=== PATIENT | female | born 1950 | race Asian ===

== ENCOUNTER 2017-07-07 09:30 | Emergency (ER) | payer MEDICARE, OTHER ==
[2017-07-07 12:00] LABS: BILIRUBIN,URINE NEGATIVE (NEGATIVE); PH,URINE 7.5 PH (5.0-7.5)
[2017-07-07 12:01] LABS: UA CHARGE (STRIP ONLY) YES
--- NOTE | 2017-07-07 12:15 | ED Physician Documentation ---
History of Present Illness - Stated complaint Stated Complaint: BACK PAIN - Chief complaint Chief Complaint: General - History obtained from History obtained from: Patient - History of Present Illness Timing: Other (About 10 days ago started a 4 day course of levofloxacin for a skin condition which has gone away. During the antibiotic therapy she had diffuse muscle aches, which got better and then got worse despite being on the antibiotics. She has the worst of it is in the parathoracic musculature and is worse if she lays down or twists. She also has some pain down into her arms and her Achilles tendons bilaterally without disability though. She tried Tylenol without help. There is no associated chest pain, trouble breathing, or fever.) Review of Systems Constitutional: denies: Fever, Chills Cardiac: denies: Chest pain / pressure, Palpitations Respiratory: denies: Dyspnea, Cough GI: denies: Abdominal Pain, Nausea, Diarrhea PD PAST MEDICAL HISTORY - Past Medical History Past Medical History: Yes Cardiovascular: None Respiratory: None Neuro: None Endocrine/Autoimmune: None GI: None : None HEENT: None Psych: None Musculoskeletal: Osteoporosis Derm: None - Past Surgical History Past Surgical History: No HEENT: Tonsil/Adenoidectomy - Present Medications Home Medications: Ambulatory Orders Medication Instructions Recorded Confirmed Multivitamin [Multi-Vitamin Daily] 1 tab PO DAILY 07/31/15 07/07/17 Cartilage/Collagen/Hyalur AC/C [Hm 1 drops PO DAILY 11/25/16 07/07/17 [facility] Ultra Tablet] Methylsulfonylmethane [MSM] 1,000 mg PO TID 11/25/16 07/07/17 Cyclobenzaprine [Flexeril] 10 mg PO TID PRN #20 tablet 07/07/17 Levofloxacin [Levaquin] 250 mg PO DAILY 07/07/17 07/07/17 - Allergies Allergies/Adverse Reactions: Allergies Allergy/AdvReac Type Severity Reaction Status Date / Time gluten Allergy Headache Verified 07/07/17 09:37 - Social History Does the pt smoke?: No Smoking Status: Never smoker Does the pt drink ETOH?: No Does the pt have substance abuse?: No - Immunizations Immunizations are current?: Yes PD ED PE NORMAL - Vitals Vital signs reviewed: Yes - General General: Alert and oriented X 3, No acute distress - HEENT HEENT: PERRL, EOMI - Neck Neck: Supple, no meningeal sign, No bony TTP - Cardiac Cardiac: RRR, No murmur - Respiratory Respiratory: No respiratory distress, Clear bilaterally - Abdomen Abdomen: Non tender - Back Back: No spinal TTP, Other (Mild tenderness of the rhomboid and parathoracic musculature, Achilles tendons are intact.) - Derm Derm: Normal color, Warm and dry - Neuro Neuro: Alert and oriented X 3, Normal speech - Psych Psych: Normal mood, Normal affect Results - Vitals Vitals: Vital Signs - 24 hr 07/07/17 07/07/17 09:32 12:36 Temperature 36.4 C L Heart Rate 83 75 Respiratory 18 18 Rate Blood Pressure 121/82 H 128/88 H O2 Saturation 99 99 Oxygen O2 Source Room air - Labs Labs: Laboratory Tests 07/07/17 11:37 Urine Color YELLOW Urine Clarity CLEAR Urine pH 7.5 Ur Specific [place] 1.010 Urine Protein NEGATIVE Urine Glucose (UA) NEGATIVE Urine Ketones NEGATIVE Urine Occult Blood NEGATIVE Urine Nitrite NEGATIVE Urine Bilirubin NEGATIVE Urine Urobilinogen 0.2 (NORMAL) Ur Leukocyte Esterase NEGATIVE Ur Microscopic Review NOT INDICATED PD MEDICAL DECISION MAKING - ED course ED course: She seems to have some myalgias and tendinopathy's without evidence of tendon rupture related to levofloxacin use which she has already stopped. Conservative care and relative rest were advised. She was reassured that this would resolve without specific intervention. Departure - Departure Disposition: 01 Home, Self Care Clinical Impression: Myalgia Condition: Good Record reviewed to determine appropriate education?: Yes Instructions: ED Neck Back Pain General Prescriptions: Cyclobenzaprine [Flexeril] 10 mg PO TID PRN #20 tablet PRN Reason: Pain Comments: Call your doctor to arrange a follow-up appointment, make the next available appointment. In the interim, return anytime if worse or if new symptoms develop. Your blood pressure was elevated today on check into the emergency department. This does not mean that you have hypertension, it is a common phenomenon to come to the emergency department and have elevated blood pressure. I recommend that she see her primary care physician within the week to have it rechecked when you are feeling better. Discharge Date/Time: 07/07/17 12:36
[2017-07-07 12:37] VITALS: BP 128/88
== END 2017-07-07 12:36 | disposition home or self-care (01) ==
LOC: ED 09:30
DX: M79.1 Myalgia (principal); R03.0 Elevated blood-pressure reading, without diagnosis of hypertension; M81.0 Age-related osteoporosis without current pathological fracture
CPT/HCPCS: 36415; 80053; 81001; 81003; 84439; 84443; 99282; 99283

== ENCOUNTER 2017-07-07 12:46 | Outpatient (CLI) | payer MEDICARE, OTHER ==
[2017-07-07 13:48] LABS: ALBUMIN/GLOBULIN RATIO 1.4 (1.0-2.2); BILIRUBIN,TOTAL 0.6 mg/dL (0.2-1.0); CALCIUM 9.2 mg/dL (8.5-10.3); CREATININE 0.5 mg/dL (0.4-1.0); POTASSIUM 3.7 mmol/L (3.5-5.0); TOTAL PROTEIN 7.3 g/dL (6.7-8.2)
[2017-07-07 14:45] LABS: THYROID STIMULATING HORMONE 1.26 uIU/mL (0.34-5.60)
== END 2017-07-07 12:47 | disposition home or self-care (01) ==
LOC: LAB 12:46
PROVIDERS: ATTEND Dermatology
DX: L29.9 Pruritus, unspecified (principal)
CPT/HCPCS: 36415; 80053; 84439; 84443

== ENCOUNTER 2017-07-09 09:17 | Outpatient (CLI) | payer MEDICARE, OTHER ==
[2017-07-09 17:32] LABS: BASOPHILS % (AUTO) 0.4 %; EOSINOPHILS % (AUTO) 0.1 %; HCT - HEMATOCRIT 41.6 % (37.0-47.0); HGB - HEMOGLOBIN 13.7 g/dL (12.0-16.0); LYMPHOCYTES # (AUTO) 1.3 10^3/uL (1.5-3.5); LYMPHOCYTES % (AUTO) 39.4 %; MEAN CORPUSCULAR HEMOGLOBIN 31.2 pg (27.0-31.0); MEAN CORPUSCULAR HGB CONC 33.1 g/dL (32.0-36.0); MEAN CORPUSCULAR VOLUME 94.2 fL (81.0-99.0); MEAN PLATELET VOLUME 9.9 fL (7.9-10.8); MONOCYTES # (AUTO) 0.3 10^3/uL (0.0-1.0); NEUTROPHILS # (AUTO) 1.6 10^3/uL (1.5-6.6); NEUTROPHILS % (AUTO) 50.1 %; RED BLOOD COUNT 4.41 10^6/uL (4.20-5.40); RED CELL DISTRIBUTION WIDTH 13.2 % (12.0-15.0); UNCORRECTED WHITE BLOOD COUNT 3.3 x10^3/uL; WHITE BLOOD COUNT 3.3 x10^3/uL (4.8-10.8)
[2017-07-09 17:54] LABS: ALBUMIN/GLOBULIN RATIO 1.3 (1.0-2.2); BILIRUBIN,TOTAL 0.7 mg/dL (0.2-1.0); BUN - BLOOD UREA NITROGEN 14 mg/dL (6-20); CALCIUM 9.1 mg/dL (8.5-10.3); CARBON DIOXIDE - CO2 30 mmol/L (21-32); CHLORIDE 104 mmol/L (101-111); CHOL/HDL RATIO 3.3 (<4.4); CHOLESTEROL 206 mg/dL; CREATININE 0.6 mg/dL (0.4-1.0); GFR - MDRD 99 (>89); GLUCOSE 89 mg/dL (70-100); HDL CHOLESTEROL 62 mg/dL; LDL/HDL RATIO 2.1 (<4.4); MAGNESIUM 2.2 mg/dL (1.7-2.8); POTASSIUM 3.9 mmol/L (3.5-5.0); SODIUM 140 mmol/L (135-145); TRIGLYCERIDES 68 mg/dL; VLDL CHOLESTEROL 14 mg/dL
== END 2017-07-09 09:18 | disposition home or self-care (01) ==
LOC: LAB.F 09:17
PROVIDERS: ATTEND Internal Medicine
DX: K90.0 Celiac disease (principal); K58.9 Irritable bowel syndrome, unspecified; K52.9 Noninfective gastroenteritis and colitis, unspecified; E78.3 Hyperchylomicronemia; M81.0 Age-related osteoporosis without current pathological fracture; E55.9 Vitamin D deficiency, unspecified; D72.819 Decreased white blood cell count, unspecified; M54.9 Dorsalgia, unspecified; K62.5 Hemorrhage of anus and rectum; Z79.899 Other long term (current) drug therapy
CPT/HCPCS: 36415; 80053; 80061; 82306; 83735; 84443; 85025

== ENCOUNTER 2017-07-31 08:00 | Outpatient (CLI) | payer MEDICARE, OTHER | END 2017-07-31 23:59 | disposition home or self-care (01) | LOC: LAB.R 08:00 | PROVIDERS: ATTEND Surgery | DX: K62.5 Hemorrhage of anus and rectum (principal) | CPT/HCPCS: 82270 ==

== ENCOUNTER 2017-10-08 13:06 | Emergency (ER) | payer MEDICARE, OTHER ==
[2017-10-08] MEDS ORDERED: ONDANSETRON 4 MG/2 ML VIAL IVP STA (13:23)
[2017-10-08] MEDS ORDERED: SODIUM CHLORIDE 0.9% 1,000 ML IV ONE (13:23)
[2017-10-08] MEDS ORDERED: KETOROLAC 60 MG/2 ML VIAL IVP STA (13:23)
--- NOTE | 2017-10-08 13:25 | ED Physician Documentation ---
PD HPI HEENT - Stated complaint Stated Complaint: VOMITING/WEAKNESS - Chief complaint Chief Complaint: Resp - History obtained from History obtained from: Patient, Family - History of Present Illness Timing - onset: Other (She has had 4 days of gradual onset frontal headache associated with runny nose, nonproductive cough, fever to 101. No neck stiffness though. Pain does radiate to the ears. She has no photophobia or pain with extraocular movements. Multiple sick contacts in the family. She also has body aches.) Review of Systems Ten Systems: 10 systems reviewed and negative Constitutional: reports: Fever, Chills, Myalgias, Fatigue Ears: reports: Ear pain Nose: reports: Rhinorrhea / runny nose, Congestion, Sinus pressure / pain Throat: denies: Sore throat Respiratory: reports: Cough. denies: Dyspnea GI: denies: Abdominal Pain PD PAST MEDICAL HISTORY - Past Medical History Cardiovascular: None Respiratory: None Neuro: None Endocrine/Autoimmune: None GI: None : None HEENT: None Psych: None Musculoskeletal: Osteoporosis Derm: None - Past Surgical History Past Surgical History: No HEENT: Tonsil/Adenoidectomy - Present Medications Home Medications: Ambulatory Orders Medication Instructions Recorded Confirmed Multivitamin [Multi-Vitamin Daily] 1 tab PO DAILY 07/31/15 10/08/17 Cartilage/Collagen/Hyalur AC/C [Hm 1 drops PO DAILY 11/25/16 10/08/17 [facility] Ultra Tablet] Methylsulfonylmethane [MSM] 1,000 mg PO TID 11/25/16 10/08/17 HYDROcod/ACETAM 5/325 [Story 5/325] 1 - 2 ea PO Q6H PRN #15 tablet 10/08/17 predniSONE [Deltasone] 40 mg PO DAILY 7 Days tablet 10/08/17 - Allergies Allergies/Adverse Reactions: Allergies Allergy/AdvReac Type Severity Reaction Status Date / Time gluten Allergy Headache Verified 10/08/17 13:14 - Social History Does the pt smoke?: No Smoking Status: Never smoker Does the pt drink ETOH?: No Does the pt have substance abuse?: No - Immunizations Immunizations are current?: Yes PD ED PE NORMAL - Vitals Vital signs reviewed: Yes - General General: Alert and oriented X 3, No acute distress, Well developed/nourished - HEENT HEENT: PERRL, EOMI, Moist mucous membranes, Other (Left TM is mildly red, she has profuse clear rhinorrhea, the oropharynx is normal) - Neck Neck: Supple, no meningeal sign, No bony TTP - Cardiac Cardiac: RRR, No murmur - Respiratory Respiratory: No respiratory distress, Clear bilaterally - Abdomen Abdomen: Non tender - Derm Derm: No rash - Extremities Extremities: No edema, No calf tenderness / cord - Neuro Neuro: Alert and oriented X 3, baggage checker 2-12 intact, No motor deficit, No sensory deficit, Normal speech Eye Opening: Spontaneous Motor: Obeys Commands Verbal: Oriented GCS Score: 15 - Psych Psych: Normal mood, Normal affect Results - Vitals Vitals: Vital Signs - 24 hr 10/08/17 10/08/17 13:11 14:35 Temperature 36.5 C 36.2 C L Heart Rate 87 72 Respiratory 18 16 Rate Blood Pressure 142/93 H 127/78 O2 Saturation 98 99 Oxygen O2 Source Room air - Labs Labs: Laboratory Tests 10/08/17 10/08/17 10/08/17 13:19 13:23 13:45 WBC 4.5 L RBC 4.46 Hgb 13.8 Hct 41.0 MCV 92.0 MCH 31.0 MCHC 33.8 RDW 12.7 Plt Count 196 MPV 9.1 Neut # 3.2 Lymph # 0.9 L Kenton # 0.4 Eos # 0.0 Baso # 0.0 Absolute Nucleated RBC 0.00 Nucleated RBC % 0.0 ESR Sodium 135 Potassium 3.9 Chloride 99 L Carbon Dioxide 25 Anion Gap 11.0 BUN 6 Creatinine 0.5 Estimated GFR (MDRD) 123 Glucose 120 H Calcium 9.3 Total Bilirubin 0.4 AST 38 ALT 29 Alkaline Phosphatase 99 C-Reactive Protein Total Protein 7.3 Albumin 4.0 Globulin 3.3 Albumin/Globulin Ratio 1.2 Lipase 24 Influenza A (Rapid) Negative Influenza B (Rapid) Negative Influenza Types A,B Ag - 10/08/17 10/08/17 13:45 13:45 WBC RBC Hgb Hct MCV MCH MCHC RDW Plt Count MPV Neut # Lymph # Kenton # Eos # Baso # Absolute Nucleated RBC Nucleated RBC % ESR 42 H Sodium Potassium Chloride Carbon Dioxide Anion Gap BUN Creatinine Estimated GFR (MDRD) Glucose Calcium Total Bilirubin AST ALT Alkaline Phosphatase C-Reactive Protein 2.0 H Total Protein Albumin Globulin Albumin/Globulin Ratio Lipase Influenza A (Rapid) Influenza B (Rapid) Influenza Types A,B Ag - Rads (name of study) CT Head Radiology: EMP read contemporaneously (NAD) PD MEDICAL DECISION MAKING - ED course ED course: 67-year-old woman with new onset headache in the setting of some viral symptoms , but the headache seems out of proportion to those other symptoms. She is tender over the temporal arteries and has modest elevations in her sed rate and CRP. The remainder of her testing is normal noting chronic leukopenia which has been worked up in the past and is actually better than previous numbers. I spoke with Dr. Hanson, her physician who will arrange to have her referred out for definitive testing for temporal arteritis and we will place her in on steroids in the interim. Departure - Departure Disposition: 01 Home, Self Care Clinical Impression: Viral disease, Elevated erythrocyte sedimentation rate Headache Qualifiers: Headache type: unspecified Headache chronicity pattern: acute headache Intractability: not intractable Qualified Code(s): R51 - Headache Condition: Good Record reviewed to determine appropriate education?: Yes Instructions: ED Cephalgia Unspecified Follow-Up: Lizzie Hanson MD [Primary Care Provider] - Prescriptions: HYDROcod/ACETAM 5/325 [Story 5/325] 1 - 2 ea PO Q6H PRN #15 tablet PRN Reason: Pain predniSONE [Deltasone] 40 mg PO DAILY 7 Days tablet Comments: As discussed, given your workup I am concerned about something called temporal arteritis which is an inflammation of the arteries in your forehead which can cause new headaches. Dr. Hanson is aware of your case, please call her today to arrange follow-up, she will likely refer you to a surgeon for evaluation for temporal artery biopsy. Need to be on steroids until that gets done, take the prescription as prescribed. Return if worse.
[2017-10-08] MEDS ORDERED: ONDANSETRON 4 MG/2 ML VIAL ONE (13:32)
[2017-10-08] MEDS ORDERED: KETOROLAC 30 MG/ML VIAL ONE (13:32)
[2017-10-08 13:58] LABS: BASOPHILS % (AUTO) 0.3 %; EOSINOPHILS % (AUTO) 0.1 %; HGB - HEMOGLOBIN 13.8 g/dL (12.0-16.0); LYMPHOCYTES # (AUTO) 0.9 10^3/uL (1.5-3.5); LYMPHOCYTES % (AUTO) 19.2 %; MEAN CORPUSCULAR HGB CONC 33.8 g/dL (32.0-36.0); MEAN PLATELET VOLUME 9.1 fL (7.9-10.8); MONOCYTES # (AUTO) 0.4 10^3/uL (0.0-1.0); MONOCYTES % (AUTO) 9.3 %; NEUTROPHILS # (AUTO) 3.2 10^3/uL (1.5-6.6); NEUTROPHILS % (AUTO) 71.1 %; RED BLOOD COUNT 4.46 10^6/uL (4.20-5.40); RED CELL DISTRIBUTION WIDTH 12.7 % (12.0-15.0); UNCORRECTED WHITE BLOOD COUNT 4.5 x10^3/uL; WHITE BLOOD COUNT 4.5 x10^3/uL (4.8-10.8)
--- NOTE | 2017-10-08 14:02 | CT Preliminary Report ---
Exam: CT HEAD W/O IMPRESSION: Negative head CT. [facility] SITE ID: [id number]
--- NOTE | 2017-10-08 14:04 | CT Report ---
EXAM: CT HEAD EXAM DATE: 10/08/2017 01:39 PM. CLINICAL HISTORY: Headache. COMPARISON: None. TECHNIQUE: Multiaxial CT images were obtained from the foramen magnum to the vertex. Reformats: Coron al. IV contrast: None. In accordance with CT protocol optimization, one or more of the following dose reduction techniques w ere utilized for this exam: automated exposure control, adjustment of mA and/or KV based on patient s ize, or use of iterative reconstructive technique. FINDINGS: Parenchyma: No intraparenchymal hemorrhage. No evidence of mass, midline shift, or CT findings of inf arction. Justice-white differentiation is distinct. Extraaxial Spaces: Normal for age. No subdural or epidural collections identified. Ventricles: Normal in size and position. Sinuses and Orbits: Imaged paranasal sinuses, orbits, and mastoids show no significant abnormality. Bones: No evidence of fracture or calvarial defect. Other: None. IMPRESSION: Negative head CT. [facility] Referring Provider Line: [phone] SITE ID: [id number]
[2017-10-08 14:12] LABS: ALBUMIN/GLOBULIN RATIO 1.2 (1.0-2.2); BILIRUBIN,TOTAL 0.4 mg/dL (0.2-1.0); CALCIUM 9.3 mg/dL (8.5-10.3); CREATININE 0.5 mg/dL (0.4-1.0); POTASSIUM 3.9 mmol/L (3.5-5.0); TOTAL PROTEIN 7.3 g/dL (6.7-8.2)
[2017-10-08] MEDS ORDERED: MORPHINE 2 MG/ML SYRINGE IVP STA (14:27)
[2017-10-08] MEDS ORDERED: MORPHINE 2 MG/ML SYRINGE ONE (14:37)
[2017-10-08] MEDS ORDERED: methylPREDNISolone SUCCINATE 125 MG/2 ML VIAL IVP STA (15:04)
[2017-10-08 15:43] VITALS: BP 118/72
[2017-10-08] MEDS ORDERED: methylPREDNISolone SUCCINATE 125 MG/2 ML VIAL ONE (15:45)
== END 2017-10-08 16:08 | disposition home or self-care (01) ==
LOC: ED 13:06
DX: B34.9 Viral infection, unspecified (principal); R70.0 Elevated erythrocyte sedimentation rate; R51 Headache
CPT/HCPCS: 36415; 70450; 80053; 83690; 85025; 85651; 86140; 87275; 87276; 96361; 96374; 96375; 99283; 99284; J2270

== ENCOUNTER 2017-10-10 10:31 | Day surgery (SDC) | payer MEDICARE, OTHER ==
[2017-10-10] MEDS ORDERED: LACTATED RINGERS 1,000 ML IV ONE (10:49)
[2017-10-10 10:53] VITALS: BP 136/85
== END 2017-10-10 10:32 | disposition home or self-care (01) ==
LOC: SDS 10:31
PROVIDERS: ATTEND Surgery
DX: Z53.9 Procedure and treatment not carried out, unspecified reason (principal)

== ENCOUNTER 2018-04-23 12:20 | Outpatient (CLI) | payer MEDICARE, OTHER | END 2018-04-23 12:21 | disposition home or self-care (01) | LOC: LAB 12:20 | PROVIDERS: ATTEND Internal Medicine | DX: R68.83 Chills (without fever) (principal); G44.221 Chronic tension-type headache, intractable; M25.50 Pain in unspecified joint | CPT/HCPCS: 36415; 81599; 86617; 86618 ==

== ENCOUNTER 2018-08-18 12:28 | Outpatient (CLI) | payer MEDICARE, OTHER ==
--- NOTE | 2018-08-19 14:31 | Mammography Report ---
Reason: BILAT SCREEN w KAMERON Procedure Date: 08/18/2018 Accession Number: [id number] / [id number] Procedure: JOHN - Screening Mammo w/Kameron CPT Code: FULL RESULT: EXAM: Screening Mammo w/Kameron DATE: 08/18/2018 1:45 PM CLINICAL HISTORY: 68-year-old female with history of late childbearing. TECHNIQUE: Bilateral CC and MLO views were obtained. COMPARISON: 07/20/2015, 05/06/2014. FINDINGS: The breasts demonstrate scattered fibroglandular densities bilaterally. No suspicious masses, clustered microcalcifications, or regions of architectural distortion are identified. IMPRESSION: Negative examination RECOMMENDATION: Routine annual screening unless otherwise clinically indicated. BIRADS CATEGORY 1: Negative STANDARD QUALIFYING STATEMENTS: 1. This examination was not reviewed with the aid of Computer-Aided Detection (CAD). 2. A negative or benign imaging report should not delay biopsy if clinically suspicious findings are present. Consider surgical consultation if warrented. More than 5% of cancers are not identified by imaging. 3. Dense breasts may obscure an underlying neoplasm. 4. This examination was reviewed with the aid of 3D breast imaging (tomosynthesis).
== END 2018-08-18 12:29 | disposition home or self-care (01) ==
LOC: DI 12:28
PROVIDERS: ATTEND Internal Medicine
DX: Z12.31 Encounter for screening mammogram for malignant neoplasm of breast (principal)
CPT/HCPCS: 77063; 77067

== ENCOUNTER 2018-08-18 12:29 | Outpatient (CLI) | payer MEDICARE, OTHER ==
--- NOTE | 2018-08-20 11:23 | DEXA Report ---
Reason: AGE-RELATED OSTEOPOROSIS Procedure Date: 08/18/2018 Accession Number: [id number] / [id number] Procedure: DEX - Dexa Spine and/or Hip CPT Code: FULL RESULT: EXAM: Dexa Spine and/or Hip DATE: 08/18/2018 2:00 PM CLINICAL HISTORY: AGE-RELATED OSTEOPOROSIS TECHNIQUE: Dual energy x-ray absorptiometry (DXA) was performed on a [employer] System. Regions measured are the AP Spine, femoral neck, and if needed forearm. COMPARISON: None. In accordance with the International Society for Clinical Densitometry (ISCD) guidelines, data from previous exams may be reanalyzed using current recommendations and techniques. This is done to allow a more accurate basis for comparison with the current study. FINDINGS: The data for the lumbar spine is as follows: BMD (g/cm/cm) T-SCORE Z-SCORE REGION L1 L2 0.567 -5.3 -3.6 L3 0.495 -5.9 -4.2 L4 0.460 -6.2 -4.5 TOTAL 0.505 -5.8 -4.1 NOTE: All evaluable vertebrae are used for classification The data for the hip is as follows: BMD (g/cm/cm) T-SCORE Z-SCORE REGION Neck 0.530 -3.7 -2.0 TOTAL 0.524 -3.8 -2.4 NOTE: The femoral neck or total proximal femur, whichever is lowest, is used for classification. IMPRESSION: THE WHO CLASSIFICATION BASED ON THE INTERNATIONAL REFERENCE STANDARD IS OSTEOPOROSIS. THE FRACTURE RISK IS HIGH. RECOMMENDATION: Patients with diagnosis of osteoporosis or osteopenia should have regular bone mineral density assessment. For those eligible for Medicare, routine testing is allowed once every 2 years. Testing frequency can be increased for patients who have rapidly progressing disease or for those who are receiving medical therapy to restore bone mass. COMMENT: World Health Organization (WHO) definitions for osteoporosis and osteopenia: NORMAL BMD: T-score at -1.0 or higher, fracture risk is low OSTEOPENIA BMD: T-score between -1.0 and -2.5, fracture risk is increased. OSTEOPOROSIS BMD: T-score at -2.5 or lower, fracture risk is high. National Osteoporosis Foundation recommends: 1. Obtain adequate dietary calcium (at least 1200 mg per day) and vitamin D (400-800 international units per day). 2. Participate, as appropriate, in regular weightbearing and muscle-strengthening exercise. 3. Avoid tobacco use and reduce alcohol and caffeine intake. 4. For more detailed information see the website at www.NOF.org.
== END 2018-08-18 12:30 | disposition home or self-care (01) ==
LOC: DI 12:29
PROVIDERS: ATTEND Internal Medicine
DX: M81.0 Age-related osteoporosis without current pathological fracture (principal)
CPT/HCPCS: 77080

== ENCOUNTER 2020-12-20 11:45 | Outpatient (CLI) | payer MEDICARE, OTHER ==
--- NOTE | 2020-12-20 14:06 | XRAY Report ---
PROCEDURE: Finger(s) LT INDICATIONS: TRAUMA TO L RING FINGER TECHNIQUE: AP hand, 2 views of the fourth finger(s) acquired. COMPARISON: None FINDINGS: Bones: No fractures or dislocations. No suspicious bony lesions. Soft tissues: No suspicious soft tissue calcifications. IMPRESSION: No acute fracture. No osseous lesion. If symptoms and/or clinical suspicion for pathology continue, f urther assessment with repeat plain films, or advanced imaging (e.g., CT, MRI, or bone scan) is recom mended for further assessment. Reviewed by: Tom Spain MD on 12/20/2020 2:04 PM PST Approved by: Tom Spain MD on 12/20/2020 2:04 PM PST Station ID: [id number]
== END 2020-12-20 11:46 | disposition home or self-care (01) ==
LOC: DI 11:45
PROVIDERS: ATTEND Internal Medicine
DX: S60.945A Unspecified superficial injury of left ring finger, initial encounter (principal)

== ENCOUNTER 2021-07-31 07:51 | Outpatient (CLI) | payer MEDICARE, OTHER ==
--- NOTE | 2021-08-01 15:04 | Mammography Report ---
BILATERAL DIGITAL SCREENING MAMMOGRAM 3D/2D: 07/31/2021 CLINICAL: Routine screening. Comparison is made to exams dated: 08/18/2018 mammogram, 07/20/2015 mammogram, 05/06/2014 mammogram, mammogram, and 07/24/2011 mammogram - [facility]. The tissue of both breast s is predominantly fatty. No significant masses, calcifications, or other findings are seen in either breast. There has been no significant interval change. IMPRESSION: NEGATIVE There is no mammographic evidence of malignancy. A 1 year screening mammogram is recommended. This exam was interpreted at Station ID: [id number]. NOTE: For mammograms, a report in lay terms will be sent to the patient. Approximately 15% of breast malignancies will not be visualized mammographically. In the management of a palpable breast mass, a negative mammogram must not discourage biopsy of a clinically suspicious lesion. Electronically Signed By: Josh Shultz M.D., jr/penrad:07/31/2021 08:53:41 ACR BI-RADS Category 1: Negative 3341F PARENCHYMAL PATTERN: (F) - The breast(s) demonstrate(s) diffuse fatty replacement. BI-RADS CATEGORY: (1) - 1 RECOMMENDATION: (ANNUAL) - Recommend routine annual screening mammography. 20220801 1 year screening LATERALITY: (B)
== END 2021-07-31 07:52 | disposition home or self-care (01) ==
LOC: DI 07:51
PROVIDERS: ATTEND Internal Medicine
DX: Z12.31 Encounter for screening mammogram for malignant neoplasm of breast (principal)

== ENCOUNTER 2022-04-11 12:28 | Outpatient (CLI) | payer MEDICARE, OTHER ==
--- NOTE | 2022-04-12 09:51 | XRAY Report ---
PROCEDURE: Elbow 3 View RT INDICATIONS: RT ELBOW PAIN TECHNIQUE: 3 views of the elbow were acquired. COMPARISON: None FINDINGS: Bones: No fractures or dislocations. No suspicious bony lesions. Soft tissues: No elbow joint effusion. No suspicious soft tissue calcifications. IMPRESSION: No acute finding. Reviewed by: Josh Shultz MD on 04/12/2022 9:49 AM PDT Approved by: Josh Shultz MD on 04/12/2022 9:49 AM PDT Station ID: [id number]
== END 2022-04-11 12:29 | disposition home or self-care (01) ==
LOC: DI 12:28
PROVIDERS: ATTEND Internal Medicine
DX: M25.521 Pain in right elbow (principal)

== ENCOUNTER 2023-01-14 08:00 | Outpatient (CLI) | payer MEDICARE, OTHER ==
[2023-01-15 22:23] LABS: BACTERIAL VAGINOSIS DNA NEGATIVE (NEGATIVE); CANDIDA KRUSEI DNA NEGATIVE (NEGATIVE); TRICHOMONAS VAGINALIS DNA NEGATIVE (NEGATIVE)
[2023-01-15 22:24] LABS: CANDIDA GLABRATA DNA NEGATIVE (NEGATIVE); CANDIDA GROUP DNA NEGATIVE (NEGATIVE)
== END 2023-01-14 23:59 | disposition home or self-care (01) ==
LOC: LAB.WC 08:00
PROVIDERS: ATTEND Obstetrics & Gynecology
DX: N89.8 Other specified noninflammatory disorders of vagina (principal)
CPT/HCPCS: 81514

== ENCOUNTER 2024-07-16 08:00 | Outpatient (CLI) | payer MEDICARE, OTHER ==
--- NOTE | 2024-07-16 14:37 | XRAY Report ---
PROCEDURE: Chest 2V INDICATIONS: LEFT RIB PAIN TECHNIQUE: 2 views of the chest were acquired. COMPARISON: 08/03/2014. FINDINGS: Surgical changes and devices: None. Lungs and pleura: No pleural effusions or pneumothorax. There is hyperinflation. No focal infiltrate . Mediastinum: Mediastinal contours appear normal. Heart size is normal. Bones and chest wall: No suspicious bony lesions. Chronic appearing anterior wedge compression defo rmities involving multiple mid thoracic spine vertebral bodies with moderate kyphosis centered at carine roximately T7-8 level. Chronic appearing superior endplate compression deformity at L1 level is also seen. Degenerative disc disease throughout thoracic and visualized lumbar spine is seen. Overlying so ft tissues appear unremarkable. IMPRESSION: Hyperinflation. No acute cardiopulmonary pathology. Chronic appearing anterior wedge comp ression deformities involving multiple thoracic spine and upper lumbar spine vertebral bodies with mo derate kyphosis as above. Reviewed by: Javed Kowalski MD on 07/16/2024 2:36 PM PDT Approved by: Javed Kowalski MD on 07/16/2024 2:36 PM PDT Station ID: [id number]
== END 2024-07-16 23:59 | disposition home or self-care (01) ==
LOC: DI.S 08:00
PROVIDERS: ATTEND Emergency Medicine
DX: R07.81 Pleurodynia (principal); M40.204 Unspecified kyphosis, thoracic region; M48.54XA Collapsed vertebra, not elsewhere classified, thoracic region, initial encounter for fracture; M48.56XA Collapsed vertebra, not elsewhere classified, lumbar region, initial encounter for fracture; M51.34 Other intervertebral disc degeneration, thoracic region; M51.36 Other intervertebral disc degeneration, lumbar region